=== PATIENT | female | born 1995 | race Caucasian/White ===

== ENCOUNTER 2016-12-21 12:13 | Outpatient (CLI) | payer BC ==
[~2016-12-21] VITALS: Ht 162.6 cm; Wt 89.1 kg
[~2016-12-21 12:13] MED LIST: DOCU100C33 PO; HYDR-3240 PO; IBUP-1223 PO
[2016-12-21 12:27] VITALS: BP 120/67
[2016-12-21] MEDS ORDERED: LACTATED RINGERS 1,000 ML IV SCH (13:00)
[2016-12-21] MEDS ORDERED: LACTATED RINGERS 1,000 ML IVBOLUS ONE (13:00)
[2016-12-21] MEDS ORDERED: PREN1TAB10 PO (14:29)
== END 2016-12-21 15:02 | disposition home or self-care (01) ==
LOC: LDOP 12:13
PROVIDERS: ATTEND Student in an Organized Health Care Education/Training Program
DX: O26.893 Other specified pregnancy related conditions, third trimester (principal); R10.9 Unspecified abdominal pain; Z3A.31 31 weeks gestation of pregnancy
CPT/HCPCS: 36415; 59025; 81001; 82731; 87086; 96360; 96361; 99201; J7120; G0463

== ENCOUNTER 2017-01-05 13:05 | Observation (INO) | payer BC ==
[~2017-01-05 13:05] MED LIST changes: +PREN1TAB10 PO
[2017-01-05] MEDS ORDERED: TERBUTALINE 1 MG/ML, 1ML ONE (15:57)
[2017-01-05] MEDS ORDERED: LACTATED RINGERS 1,000 ML IVBOLUS ONE (16:00)
[2017-01-05] MEDS ORDERED: TERBUTALINE 1 MG/ML, 1ML SQ ONE (16:00)
[2017-01-05] MEDS ORDERED: PLEASE ENTER HEIGHT AND WEIGHT MC SCH (16:00)
[2017-01-05 16:43] LABS: PATH.CAST-FLAG NOT PRESENT; SPERM-FLAG NOT PRESENT; SRC-FLAG NOT PRESENT; XTAL-FLAG NOT PRESENT; YLC-FLAG NOT PRESENT
== END 2017-01-05 17:45 | disposition home or self-care (01) ==
LOC: LDOP 13:05 → LDIP 15:33
PROVIDERS: ADMIT Obstetrics & Gynecology; ATTEND Obstetrics & Gynecology
DX: O26.899 Other specified pregnancy related conditions, unspecified trimester (principal); R10.9 Unspecified abdominal pain; Z3A.00 Weeks of gestation of pregnancy not specified
CPT/HCPCS: 59025; 76819; 81001; 87086; 96360; 96372; G0378; J3105; J7120; 96361

== ENCOUNTER 2017-02-09 11:07 | Outpatient (CLI) | payer BC ==
[~2017-02-09] VITALS: Ht 162.6 cm; Wt 92.7 kg
[2017-02-09 11:20] VITALS: BP 119/79
== END 2017-02-09 13:05 | disposition home or self-care (01) ==
LOC: LDOP 11:07
PROVIDERS: ATTEND Obstetrics & Gynecology
DX: O26.893 Other specified pregnancy related conditions, third trimester (principal); O42.92 Full-term premature rupture of membranes, unspecified as to length of time between rupture and onset of labor; O62.9 Abnormality of forces of labor, unspecified; R10.9 Unspecified abdominal pain; Z3A.38 38 weeks gestation of pregnancy
CPT/HCPCS: 59025; 99211; G0463

== ENCOUNTER 2017-02-13 17:28 | Outpatient (CLI) | payer BC ==
[~2017-02-13] VITALS: Ht 162.6 cm; Wt 89.8 kg
[2017-02-13 18:28] VITALS: BP 135/74
== END 2017-02-13 19:12 | disposition home or self-care (01) ==
LOC: LDOP 17:28
PROVIDERS: ATTEND Obstetrics & Gynecology
DX: O42.92 Full-term premature rupture of membranes, unspecified as to length of time between rupture and onset of labor (principal); Z3A.00 Weeks of gestation of pregnancy not specified
CPT/HCPCS: 59025; 76815; 89060; 99211; G0463; Q0114

== ENCOUNTER 2017-02-22 19:04 | Inpatient (IN) | payer BC ==
[~2017-02-22] VITALS: Ht 162.6 cm; Wt 95.5 kg
[2017-02-22] MEDS ORDERED: OXYTOCIN 30U/ 0.9% NaCL 500ML 500 ML IV ONE ×2 (21:02→22:02)
[2017-02-22 21:30] VITALS: BP 127/75
[2017-02-22] MEDS ORDERED: FENTANYL PF 100 MCG/2ML IV PRN (21:30)
[2017-02-22] MEDS ORDERED: ONDANSETRON 2MG/ML, 2ML IVPush PRN (21:30)
[2017-02-22] MEDS ORDERED: FENTANYL PF 100 MCG/2ML IVPush PRN (21:30)
[2017-02-22 21:34] LABS: HEMATOCRIT 38.6 % (34.6-47.8); HEMOGLOBIN 13.1 g/dL (11.7-16.4); WHITE BLOOD COUNT 14.3 x10^3/uL (4.5-13.2)
[2017-02-22] MEDS: D5%-LACTATED RINGERS 1,000 ML IV SCH (22:02)
[2017-02-22] MEDS: LACTATED RINGERS 1,000 ML IV SCH ×2 (22:05→22:29)
[2017-02-22] MEDS ORDERED: FENTANYL PF 100 MCG/2ML ONE (22:07)
[2017-02-22] MEDS ORDERED: TERBUTALINE 1 MG/ML, 1ML IVPush PRN ×2 (22:30)
[2017-02-22] MEDS ORDERED: CALCIUM CARBONATE 500 MG TAB.CHEW PO PRN (22:30)
[2017-02-22] MEDS ORDERED: TERBUTALINE 1 MG/ML, 1ML SQ PRN (22:30)
[2017-02-22] MEDS ORDERED: FENTANYL/BUPIV./NS/PF 250 ML EPIDCONT ONE ×2 (22:38→22:45)
[2017-02-22] MEDS ORDERED: BUPIVACAINE 0.25% ONE (22:38)
[2017-02-22] MEDS ORDERED: LIDOCAINE/PF 1.5%-EPI 1:200K, 30ML ONE (22:45)
[2017-02-22] MEDS ORDERED: FENTANYL/BUPIV./NS/PF 250 ML EPIDCONT SCH (23:03)
[2017-02-22] MEDS ORDERED: LACTATED RINGERS 1,000 ML IV SCH (23:03)
[2017-02-22] MEDS ORDERED: NEWBORN KIT ONE (23:06)
[2017-02-22] MEDS ORDERED: OXYTOCIN 30U/ 0.9% NaCL 500ML 500 ML ONE (23:06)
[2017-02-22] MEDS ORDERED: LACTATED RINGERS 1,000 ML IVBOLUS PRN (23:30)
[2017-02-23] MEDS ORDERED: MISOPROSTOL 200 MCG TABLET PR PRN (01:30)
[2017-02-23] MEDS ORDERED: HYDROcodone/APAP 5/325 TABLET PO PRN (01:30)
[2017-02-23] MEDS ORDERED: ACETAMINOPHEN 325 MG TABLET PO PRN ×2 (01:30)
[2017-02-23] MEDS ORDERED: OXYTOCIN 30U/ 0.9% NaCL 500ML 500 ML ONE (03:18)
[2017-02-23] MEDS: OXYTOCIN 30U/ 0.9% NaCL 500ML 500 ML IV SCH ×3 (03:22→21:25)
[2017-02-23 04:50] VITALS: BP 134/92
[2017-02-23] MEDS: IBUPROFEN 600 MG TABLET PO PRN ×3 (05:12→21:35)
[2017-02-23] MEDS: D5%-LACTATED RINGERS 1,000 ML IV SCH (06:02)
[2017-02-23 07:15] VITALS: BP 124/81
[2017-02-23] MEDS: PRENATAL VIT/IRON/FA 1 EACH TABLET PO SCH (07:40)
[2017-02-23] MEDS: DOCUSATE 100 MG CAPSULE PO PRN ×2 (07:40→21:35)
[2017-02-23] MEDS ORDERED: PRENATAL VIT/IRON/FA 1 EACH TABLET ONE (07:48)
[2017-02-23] MEDS: HYDROcodone/APAP 5/325 TABLET PO PRN ×2 (08:45→14:54)
[2017-02-23 09:51] LABS: HEMATOCRIT 36.4 % (34.6-47.8); HEMOGLOBIN 12.5 g/dL (11.7-16.4); WHITE BLOOD COUNT 15.1 x10^3/uL (4.5-13.2)
[2017-02-23] MEDS ORDERED: RHOGAM FROM BLOOD BANK 1 NOTE EA IM/IV ONE (11:30)
[2017-02-23 11:50] VITALS: BP 129/85
[2017-02-23 15:40] VITALS: BP 117/80
[2017-02-23 21:00] VITALS: BP 133/92
[2017-02-24 08:18] VITALS: BP 146/100
[2017-02-24] MEDS: PRENATAL VIT/IRON/FA 1 EACH TABLET PO SCH (08:25)
[2017-02-24] MEDS: DOCUSATE 100 MG CAPSULE PO PRN (08:25)
[2017-02-24] MEDS: IBUPROFEN 600 MG TABLET PO PRN (08:25)
[2017-02-24] MEDS ORDERED: HYDR-3237 PO (14:32)
[2017-02-24] MEDS ORDERED: IBUP-1222 PO (14:32)
[2017-02-24] MEDS ORDERED: SENN-52 PO (14:33)
== END 2017-02-24 15:25 | disposition home or self-care (01) | DRG 775 ==
LOC: LDOP 19:04 → LDIP 21:16 → 2NW 02-23 04:20
PROVIDERS: ADMIT Obstetrics & Gynecology; ATTEND Obstetrics & Gynecology
PROC: 10E0XZZ Delivery of Products of Conception, External Approach (ICD-10-PCS; principal; 2017-02-23)
PROC: 10907ZC Drainage of Amniotic Fluid, Therapeutic from Products of Conception, Via Natural or Artificial Opening (ICD-10-PCS; 2017-02-23)
PROC: 3E0R3BZ Introduction of Anesthetic Agent into Spinal Canal, Percutaneous Approach (ICD-10-PCS; 2017-02-23)
PROC: 00HU33Z Insertion of Infusion Device into Spinal Canal, Percutaneous Approach (ICD-10-PCS; 2017-02-23)
DX: O80 Encounter for full-term uncomplicated delivery (principal); Z37.0 Single live birth; Z3A.40 40 weeks gestation of pregnancy
CPT/HCPCS: 36415; 85025; 85461; 86850; 86900; J2790; J3010; J3490; J2590; J7120

== ENCOUNTER 2019-02-23 23:25 | Emergency (ER) | payer BC ==
[~2019-02-23] VITALS: Ht 162.6 cm; Wt 87.2 kg
[~2019-02-23 23:25] MED LIST changes: +HYDR-3237 PO; +IBUP-1222 PO; +SENN-52 PO
[2019-02-23 23:37] VITALS: BP 124/78
--- NOTE | 2019-02-24 | NUR ---
PT STATES SHE IS APPROX 11 WEEKS . PT STATES SHE HAD AN UNTRASOUND ON THE 02/08 AND HR WAS 80. PT STARTED HAVING SPOTTING ON THE AND HASNT STOPPED SINCE THEN. NO ACUTE DISTRESS. PT RESTING WITH S/O AT BEDSIDE. A0. CALL LIGHT WITHIN REACH.
[2019-02-24 00:10] LABS: MICROSCOPIC AUTO
[2019-02-24 00:12] LABS: CULTURE INDICATED? YES
[2019-02-24 00:14] LABS: BASOPHILS # (AUTO) 0.03 x10^3/uL (0-0.1); BASOPHILS % (AUTO) 0 % (0-1); EOSINOPHILS % (AUTO) 1 % (1-7); LYMPHOCYTES # (AUTO) 2.76 x10^3/uL (1-3.4); LYMPHOCYTES % (AUTO) 28 % (22-44); MD NO; MEAN CORPUSCULAR HEMOGLOBIN 30.1 pg (27.0-34.8); MEAN CORPUSCULAR HGB CONC 33.6 g/dL (32.4-35.8); MEAN CORPUSCULAR VOLUME 89.7 fL (80-100); MEAN PLATELET VOLUME 10.3 fL (7.4-10.4); MONOCYTES # (AUTO) 0.53 x10^3/uL (0.2-0.8); MONOCYTES % (AUTO) 5 % (2-9); NEUTROPHILS # (AUTO) 6.46 x10^3/uL (1.8-6.8); NEUTROPHILS % (AUTO) 65 % (42-75); PLATELET COUNT 195 x10^3/uL (130-400); RED BLOOD COUNT 4.85 x10^6/uL (3.82-5.3); RED CELL DISTRIBUTION WIDTH 12.3 % (9.6-15.2)
--- NOTE | 2019-02-24 01:56 | NUR ---
PT RESTING ON GURNEY, EYES CLOSED. RESPIRATIONS EVEN AND UNLABORED.
--- NOTE | 2019-02-24 02:36 | NUR ---
PT PLACED FOR RECHECK
== END 2019-02-24 03:59 | disposition home or self-care (01) ==
LOC: ED 02-24 03:42
DX: O02.1 Missed abortion (principal)
CPT/HCPCS: 36415; 76801; 81001; 84702; 85025; 87086; 99284

== ENCOUNTER 2019-11-03 15:20 | Emergency (ER) | payer BC ==
[~2019-11-03] VITALS: Ht 162.6 cm; Wt 94.2 kg
[2019-11-03 15:45] VITALS: BP 122/70
== END 2019-11-03 16:08 | disposition left against medical advice (07) ==
LOC: ED 15:30
DX: O26.892 Other specified pregnancy related conditions, second trimester (principal); R10.9 Unspecified abdominal pain; Z3A.19 19 weeks gestation of pregnancy

== ENCOUNTER 2019-12-19 08:24 | Outpatient (CLI) | payer BC ==
[~2019-12-19] VITALS: Ht 162.6 cm; Wt 94.0 kg
[2019-12-19 08:37] VITALS: BP 110/61
[2019-12-19 09:28] LABS: MICROSCOPIC INDICATED
== END 2019-12-19 10:50 | disposition home or self-care (01) ==
LOC: LDOP 08:24
PROVIDERS: ATTEND Obstetrics & Gynecology
DX: O26.892 Other specified pregnancy related conditions, second trimester (principal); R10.9 Unspecified abdominal pain; Z3A.25 25 weeks gestation of pregnancy
CPT/HCPCS: 81001; 87086; 99211; G0463

== ENCOUNTER 2020-03-05 02:48 | Outpatient (CLI) | payer BC ==
[~2020-03-05] VITALS: Ht 162.6 cm; Wt 102.3 kg
[2020-03-05 03:49] VITALS: BP 111/86
[2020-03-05] MEDS ORDERED: PREN1TAB79 PEG (03:56)
[2020-03-05] MEDS ORDERED: CALC400T6 PO (03:56)
[2020-03-05 05:15] LABS: MICROSCOPIC NOT IND
== END 2020-03-05 04:51 | disposition home or self-care (01) ==
LOC: LDOP 02:48
PROVIDERS: ATTEND Obstetrics & Gynecology
DX: O26.893 Other specified pregnancy related conditions, third trimester (principal); R10.9 Unspecified abdominal pain; Z3A.36 36 weeks gestation of pregnancy
CPT/HCPCS: 59025; 81003; 87086

== ENCOUNTER 2020-03-05 21:26 | Outpatient (CLI) | payer BC ==
[~2020-03-05 21:26] MED LIST changes: +CALC400T6 PO; +PREN1TAB79 PEG
[2020-03-05 22:29] LABS: FERNING TEST FERNING NOT PRESENT (NEGATIVE)
== END 2020-03-05 23:27 | disposition home or self-care (01) ==
LOC: LDOP 21:26
PROVIDERS: ATTEND Obstetrics & Gynecology
DX: O42.913 Preterm premature rupture of membranes, unspecified as to length of time between rupture and onset of labor, third trimester (principal); Z3A.36 36 weeks gestation of pregnancy
CPT/HCPCS: 59025; 84112; 89060; Q0114

== ENCOUNTER 2020-03-15 10:36 | Outpatient (CLI) | payer BC ==
[~2020-03-15] VITALS: Ht 162.6 cm; Wt 100.0 kg
[2020-03-15 11:05] VITALS: BP 134/68
== END 2020-03-15 13:25 | disposition home or self-care (01) ==
LOC: LDOP 10:36
PROVIDERS: ATTEND Obstetrics & Gynecology
DX: O26.893 Other specified pregnancy related conditions, third trimester (principal); Z3A.37 37 weeks gestation of pregnancy
CPT/HCPCS: 36415; 59025; 85460

== ENCOUNTER → 2020-03-21 | Outpatient (CLI) | payer BC | END | disposition home or self-care (01) | LOC: STAR 09:13 | PROVIDERS: ATTEND Anesthesiology | DX: Z20.828 Contact with and (suspected) exposure to other viral communicable diseases (principal) | CPT/HCPCS: 87635 ==

== ENCOUNTER 2020-03-25 05:51 | Inpatient (IN) | payer BC ==
[~2020-03-25] VITALS: Ht 162.6 cm; Wt 100.0 kg
[2020-03-25] MEDS ORDERED: OXYTOCIN 30U/ 0.9% NaCL 500ML 500 ML ONE ×2 (05:56→17:17)
[2020-03-25] MEDS ORDERED: NEWBORN KIT ONE (05:58)
[2020-03-25] MEDS ORDERED: LIDOCAINE 1%, 20ML ONE (05:58)
[2020-03-25] MEDS ORDERED: MISOPROSTOL 200 MCG TABLET ONE (05:59)
[2020-03-25] MEDS ORDERED: TERBUTALINE 1 MG/ML, 1ML SQ PRN (06:00)
[2020-03-25] MEDS ORDERED: OXYTOCIN 30U/ 0.9% NaCL 500ML 500 ML IV ONE (06:00)
[2020-03-25] MEDS ORDERED: OXYTOCIN 30U/ 0.9% NaCL 500ML 500 ML IV PRN (06:00)
[2020-03-25] MEDS ORDERED: TERBUTALINE 1 MG/ML, 1ML IVPush PRN (06:00)
[2020-03-25] MEDS ORDERED: ONDANSETRON 2MG/ML, 2ML IVPush PRN (06:00)
[2020-03-25] MEDS ORDERED: FENTANYL PF 100 MCG/2ML IV PRN (06:00)
[2020-03-25] MEDS ORDERED: FENTANYL PF 100 MCG/2ML IVPush PRN (06:00)
[2020-03-25] MEDS ORDERED: CALCIUM CARBONATE 500 MG TAB.CHEW PO PRN (06:00)
[2020-03-25 06:02] VITALS: BP 125/84
[2020-03-25] MEDS: LACTATED RINGERS 1,000 ML IV SCH ×2 (06:15→13:34)
[2020-03-25] MEDS ORDERED: PLEASE ENTER HEIGHT AND WEIGHT MC SCH (06:30)
[2020-03-25 06:39] LABS: BASOPHILS % (AUTO) 1 % (0-1); EOSINOPHILS % (AUTO) 1 % (1-7); LYMPHOCYTES % (AUTO) 22 % (22-44); MEAN CORPUSCULAR HEMOGLOBIN 30.4 pg (27.0-34.8); MEAN CORPUSCULAR HGB CONC 34.6 g/dL (32.4-35.8); MEAN PLATELET VOLUME 11.2 fL (7.4-10.4); MONOCYTES % (AUTO) 6 % (2-9); NEUTROPHILS % (AUTO) 69 % (42-75); PLATELET COUNT 126 x10^3/uL (130-400); RED BLOOD COUNT 3.82 x10^6/uL (3.82-5.3); RED CELL DISTRIBUTION WIDTH 14.1 % (9.6-15.2)
[2020-03-25 06:41] LABS: MD NO
[2020-03-25] MEDS ORDERED: D5%-LACTATED RINGERS 1,000 ML IV SCH (07:30)
[2020-03-25] MEDS ORDERED: LACTATED RINGERS 1,000 ML IVBOLUS PRN ×2 (14:00→15:00)
[2020-03-25] MEDS ORDERED: FENTANYL/BUPIV./NS/PF 250 ML EPIDCONT SCH ×2 (14:00→15:00)
[2020-03-25] MEDS ORDERED: FENTANYL/BUPIV./NS/PF 250 ML EPIDCONT ONE (14:09)
[2020-03-25] MEDS ORDERED: CALCIUM CARBONATE 500 MG TAB.CHEW ONE (14:33)
[2020-03-25] MEDS ORDERED: EPHEDRINE 50 MG/ML, 1ML IVPush PRN (15:00)
[2020-03-25] MEDS ORDERED: LACTATED RINGERS 1,000 ML IV SCH (15:00)
[2020-03-25] MEDS ORDERED: BUPIVACAINE 0.25% ONE (17:12)
[2020-03-25] MEDS ORDERED: SIMETHICONE 80 MG CHEW TAB PO PRN (17:30)
[2020-03-25] MEDS ORDERED: RHOGAM FROM BLOOD BANK 1 NOTE EA IM/IV ONE (17:30)
[2020-03-25] MEDS ORDERED: ACETAMINOPHEN 325 MG TABLET PO PRN (17:30)
[2020-03-25] MEDS ORDERED: MISOPROSTOL 200 MCG TABLET PR PRN (17:30)
[2020-03-25] MEDS ORDERED: METHYLERGONOVINE 0.2 MG/ML IM PRN (17:30)
[2020-03-25] MEDS ORDERED: OXYTOCIN 10 UNITS/ML, 1ML IM PRN (17:30)
[2020-03-25] MEDS ORDERED: ONDANSETRON 2MG/ML, 2ML IV PRN (17:30)
[2020-03-25] MEDS ORDERED: HYDROcodone/APAP 5/325 TABLET PO PRN ×2 (17:30)
[2020-03-25] MEDS ORDERED: DOCUSATE 100 MG CAPSULE PO PRN (17:30)
[2020-03-25] MEDS: CEFOTETAN PMX 2GM/50ML 50 ML IVPB SCH (17:54)
[2020-03-25 19:35] VITALS: BP 130/81
[2020-03-25] MEDS: OXYTOCIN 30U/ 0.9% NaCL 500ML 500 ML IV SCH (19:35)
[2020-03-26 00:50] VITALS: BP 137/89
[2020-03-26] MEDS: IBUPROFEN 600 MG TABLET PO PRN ×3 (01:10→14:45)
[2020-03-26] MEDS: OXYTOCIN 30U/ 0.9% NaCL 500ML 500 ML IV SCH ×2 (03:30→13:30)
[2020-03-26 05:30] VITALS: BP 122/80
[2020-03-26] MEDS: CEFOTETAN PMX 2GM/50ML 50 ML IVPB SCH (05:32)
[2020-03-26 06:07] LABS: BASOPHILS % (AUTO) 1 % (0-1); EOSINOPHILS % (AUTO) 1 % (1-7); LYMPHOCYTES % (AUTO) 17 % (22-44); MEAN CORPUSCULAR HGB CONC 34.4 g/dL (32.4-35.8); MEAN PLATELET VOLUME 11.3 fL (7.4-10.4); MONOCYTES % (AUTO) 6 % (2-9); NEUTROPHILS % (AUTO) 77 % (42-75); PLATELET COUNT 120 x10^3/uL (130-400); RED BLOOD COUNT 4.34 x10^6/uL (3.82-5.3); RED CELL DISTRIBUTION WIDTH 13.8 % (9.6-15.2)
[2020-03-26 06:09] LABS: MD NO
[2020-03-26 08:00] VITALS: BP 127/88
[2020-03-26] MEDS ORDERED: RHOGAM FROM BLOOD BANK 1 NOTE EA IM/IV ONE (08:00)
[2020-03-26] MEDS ORDERED: PRENATAL VIT/IRON/FA 1 EACH TABLET PO SCH (09:00)
[2020-03-26 11:53] VITALS: BP 129/87
[2020-03-26] MEDS ORDERED: SENN-92 PO (15:57)
[2020-03-26] MEDS ORDERED: IBUP-1222 PO (15:57)
[2020-03-26] MEDS ORDERED: HYDR-3240 PO (15:58)
== END 2020-03-26 17:15 | disposition home or self-care (01) | DRG 807 ==
LOC: LDIP 05:51 → 2NW 19:15
PROVIDERS: ADMIT Obstetrics & Gynecology; ATTEND Obstetrics & Gynecology
PROC: 10E0XZZ Delivery of Products of Conception, External Approach (ICD-10-PCS; 2020-03-25)
PROC: 3E0R3BZ Introduction of Anesthetic Agent into Spinal Canal, Percutaneous Approach (ICD-10-PCS; 2020-03-25)
PROC: 00HU33Z Insertion of Infusion Device into Spinal Canal, Percutaneous Approach (ICD-10-PCS; 2020-03-25)
PROC: 3E0234Z Introduction of Serum, Toxoid and Vaccine into Muscle, Percutaneous Approach (ICD-10-PCS; principal; 2020-03-26)
DX: O69.1XX0 Labor and delivery complicated by cord around neck, with compression, not applicable or unspecified (principal); Z37.0 Single live birth; O26.893 Other specified pregnancy related conditions, third trimester; Z67.91 Unspecified blood type, Rh negative; Z3A.39 39 weeks gestation of pregnancy; M54.30 Sciatica, unspecified side; O75.89 Other specified complications of labor and delivery
CPT/HCPCS: 36415; J7121; 85025; 85461; 86592; 86850; 86900; G0378; J2790; J2590; J3010; J7120

== ENCOUNTER 2020-04-07 20:30 | Emergency (ER) | payer BC ==
[~2020-04-07] VITALS: Ht 162.6 cm; Wt 96.6 kg
[~2020-04-07 20:30] MED LIST changes: +SENN-92 PO
[2020-04-07 20:33] VITALS: BP 127/92
--- NOTE | 2020-04-07 20:45 | NUR ---
Provider at bedside.
--- NOTE | 2020-04-07 20:57 | NUR ---
Lab at bedside.
--- NOTE | 2020-04-07 20:59 | NUR ---
Pt ambulating to bathroom.
[2020-04-07] MEDS ORDERED: SODIUM CHLORIDE 0.9% 1,000ML IVBOLUS ONE (21:00)
[2020-04-07] MEDS ORDERED: SODIUM CHLORIDE FLUSH 10ML SYR IVF ONE (21:00)
[2020-04-07 21:06] LABS: BASOPHILS % (AUTO) 1 % (0-1); EOSINOPHILS % (AUTO) 5 % (1-7); LYMPHOCYTES % (AUTO) 28 % (22-44); MEAN CORPUSCULAR HEMOGLOBIN 30.2 pg (27.0-34.8); MEAN CORPUSCULAR HGB CONC 34.2 g/dL (32.4-35.8); MEAN PLATELET VOLUME 10.4 fL (7.4-10.4); MONOCYTES % (AUTO) 6 % (2-9); NEUTROPHILS % (AUTO) 60 % (42-75); PLATELET COUNT 211 x10^3/uL (130-400); RED BLOOD COUNT 4.66 x10^6/uL (3.82-5.3); RED CELL DISTRIBUTION WIDTH 13.1 % (9.6-15.2)
[2020-04-07 21:07] LABS: MD NO
[2020-04-07 21:15] LABS: ALANINE AMINOTRANSFERASE 45 U/L (12-78); ALBUMIN 3.2 g/dL (3.4-5.0); ANION GAP 5 mmol/L (5-15); CALCIUM 8.9 mg/dL (8.5-10.1); CHLORIDE 111 mmol/L (98-107)
[2020-04-07 21:17] LABS: ALKALINE PHOSPHATASE 143 U/L (45-117); BILIRUBIN,TOTAL 0.5 mg/dL (0.2-1.0); TOTAL PROTEIN 7.3 g/dL (6.4-8.2)
--- NOTE | 2020-04-07 21:23 | NUR ---
UA collected and sent to lab.
--- NOTE | 2020-04-07 21:34 | NUR ---
Pt back from imaging.
[2020-04-07 21:36] LABS: MICROSCOPIC INDICATED
== END 2020-04-07 23:25 | disposition home or self-care (01) ==
LOC: ED 23:15
DX: N93.8 Other specified abnormal uterine and vaginal bleeding (principal); N30.01 Acute cystitis with hematuria; R94.31 Abnormal electrocardiogram [ECG] [EKG]
CPT/HCPCS: 36415; 76856; 80053; 81001; 84702; 85025; 87077; 87086; 87186; 93005; 99285